=== PATIENT | male | born 1980 | race Caucasian/White ===

== ENCOUNTER 2017-05-30 18:22 | Emergency (ER) | payer OTHER ==
--- NOTE | 2017-05-30 18:33 | PDOC ---
Rapid Medical Evaluation Chief Complaint: Injury Medical Evaluation: 05/30/17 18:32 I have performed a brief in-person evaluation of this patient. The patient presents with a chief complaint of:Slipped on plastic outdoors and injured R knee and R lower back Pertinent physical exam findings:Abrasion to R knee I have ordered the following:xray R knee The patient will proceed to the ED for further evaluation.
[2017-05-30 18:35] VITALS: BP 134/83; PULSE 90; TEMP 97; BMI 29.7
[2017-05-30] MEDS ORDERED: KETOROLAC TROMETHAMINE 60 MG/2 ML VIAL IM ONE (19:28)
[2017-05-30] MEDS ORDERED: KETOROLAC TROMETHAMINE 60 MG/2 ML VIAL ONE (19:30)
--- NOTE | 2017-05-30 19:31 | PDOC ---
History of Present Illness - General Chief Complaint: Injury Stated Complaint: FALL/INJURY Time Seen by Provider: 05/30/17 19:02 - History of Present Illness Initial Comments: 05/30/17 19:26 CHIEF COMPLAINT: R sided low back pain HISTORY OF PRESENT ILLNESS: 36 yo M with no significant PMH presents to [facility] with R lower back today after slipping on "a piece of plastic" and landing on his R knee. He states he felt a muscle strain in his back when he fell onto his knee and that he has "a little pain" in his knee but "more on the R side of my back." PAST MEDICAL HISTORY: Denies past medical history FAMILY HISTORY: Denies SOCIAL HISTORY: Denies tobacco, alcohol, illicit drug use. SURGICAL HISTORY: Denies ALLERGIES: No known drug allergies REVIEW OF SYSTEMS as per HPI PHYSICAL EXAM General Appearance: Well-appearing, appropriately dressed. No apparent distress. HEENT: EOMI, PERRLA Respiratory/Chest: Lungs CTAB. Cardiovascular: RRR. S1, S2. Musculoskeletal/Extremities: Palpable muscle spasm to R lower back. No swelling or erythema to R knee. Normal inspection. FROM of all extremities, normal capillary refill. Pelvis Stable. No CVA tenderness. No tenderness to extremities, pedal edema, swelling, erythema or deformity. Integumentary: Appropriate color, dry, warm. No cyanosis, erythema, jaundice or rash Neurologic: winder fixer II-XII intact. Fully oriented, alert. Appropriate mood/affect. Motor strength 5/5. No appreciable EOM palsy, facial droop or sensory deficit. Past History - Past Medical History Allergies/Adverse Reactions: Allergies Allergy/AdvReac Type Severity Reaction Status Date / Time No Known Allergies Allergy Verified 05/30/17 18:34 Home Medications: Ambulatory Orders Cyclobenzaprine HCl 7.5 mg PO HS PRN #5 tablet 05/30/17 Naproxen 375 mg PO BID #14 tablet 05/30/17 COPD: No DVT: No - Suicide/Smoking/Psychosocial Hx Smoking History: Never smoked *Physical Exam - Vital Signs Last Vital Signs Temp Pulse Resp BP Pulse Ox 97 F L 90 18 134/83 99 05/30/17 18:31 05/30/17 18:31 05/30/17 18:31 05/30/17 18:31 05/30/17 18:31 Medical Decision Making - Medical Decision Making 05/30/17 19:28 36 yo M with no significant PMH presents to [facility] with R lower back today after slipping on "a piece of plastic" and landing on his R knee. -Toradol IM Advised patient to take medication as prescribed and follow up with ortho if symptoms persist. Advised patient of signs and symptoms for return to ED. Patient verbalized understanding and agrees to plan. *DC/Admit/Observation/Transfer Diagnosis at time of Disposition: Low back strain - Discharge Dispostion Disposition: HOME Condition at time of disposition: Stable Admit: No - Prescriptions Prescriptions: Cyclobenzaprine HCl 7.5 mg PO HS PRN #5 tablet PRN Reason: Muscle Spasms Naproxen 375 mg PO BID #14 tablet - Referrals Referrals: Jose Peña MD [Staff Physician] - - Patient Instructions Printed Discharge Instructions: DI for Muscle Strain Additional Instructions: Please take medication as prescribed - do NOT drink alcohol, drive, or operate machinery while taking cyclobenzaprine. If your symptoms do not improve in 5-7 days, please follow up with an orthopedics for further evaluation and a possible MRI or physical therapy. If you experience any loss of sensation to your extremities, any loss of bowel or bladder function, any swelling or increased pain to your leg, please return to the ER. - Post Discharge Activity
== END 2017-05-30 19:35 | disposition home or self-care (01) ==
LOC: JERFT 18:22
PROC: 3E0233Z Introduction of Anti-inflammatory into Muscle, Percutaneous Approach (ICD-10-PCS; principal; 2017-05-30)
DX: S39.012A Strain of muscle, fascia and tendon of lower back, initial encounter (principal); W01.0XXA Fall on same level from slipping, tripping and stumbling without subsequent striking against object, initial encounter; Y93.89 Activity, other specified; Y92.89 Other specified places as the place of occurrence of the external cause; Y99.8 Other external cause status
CPT/HCPCS: 73562-TC-RT-FY; 99281-25

== ENCOUNTER 2018-07-01 16:30 | Emergency (ER) | payer OTHER ==
[2018-07-01 16:46] VITALS: BP 119/70; PULSE 109; TEMP 98.5; BMI 29.0
[2018-07-01] MEDS ORDERED: PENICILLIN G BENZATHINE 1,200,000 UNIT/2 ML PFS IM ONE (17:13)
[2018-07-01] MEDS ORDERED: DEXAMETHASONE LIQUID 0.5 MG/5 ML 240 ML BULK BOTTLE PO ONE (17:13)
--- NOTE | 2018-07-01 17:15 | PDOC ---
History of Present Illness - General Chief Complaint: Sore Throat Stated Complaint: FEVER SORE THROAT Time Seen by Provider: 07/01/18 17:10 - History of Present Illness Initial Comments: 07/01/18 17:13 37-year-old male without comorbidities presents for evaluation of sore throat and fever times one day. Past History - Past Medical History Allergies/Adverse Reactions: Allergies Allergy/AdvReac Type Severity Reaction Status Date / Time No Known Allergies Allergy Verified 07/01/18 16:46 Home Medications: Ambulatory Orders NK [No Known Home Medication] 11/18/17 COPD: No DVT: No - Immunization History Immunization Up to Date: Yes - Suicide/Smoking/Psychosocial Hx Smoking History: Never smoked Have you smoked in the past 12 months: No Hx Alcohol Use: Yes (OCCASIONALLY) Drug/Substance Use Hx: No Substance Use Type: None Review of Systems - Review of Systems Constitutional: Yes: Fever HEENTM: Yes: Throat Pain, Difficulty Swallowing *Physical Exam - Vital Signs Last Vital Signs Temp Pulse Resp BP Pulse Ox 98.5 F 109 H 16 119/70 97 07/01/18 16:44 07/01/18 16:44 07/01/18 16:44 07/01/18 16:44 07/01/18 16:44 - Physical Exam Comments: 07/01/18 17:13 HEAD: NC/AT EYES: Conjuntiva clear Ears: Canals and TM's normal NOSE: No d/c THROAT: Moist mucous membrances, oral pharanx erythemic with exudate, uvula midline NECK: Supple without adenopathy CARDIAC: S1 S2 LUNGS: CTA Full and Equal breath sounds ABDOMEN: Soft NT ND MS: Full ROM in all joints without edema NEUROLOGIC: No gross sensory or motor deficits, NVID SKIN: Normal color and temperature no lesions or rashes Medical Decision Making - Medical Decision Making 07/01/18 17:13 Treat for strep based on symptoms. Patient is requesting a shot of Bicillin. I will give him Bicillin and Decadron and have him follow-up with his PCP. *DC/Admit/Observation/Transfer Diagnosis at time of Disposition: Strep pharyngitis - Discharge Dispostion Disposition: HOME Condition at time of disposition: Stable Decision to Admit order: No - Referrals Referrals: Leeroy Galvez [Non Staff, Medical] - - Patient Instructions Printed Discharge Instructions: DI for Strep Throat, Strep Throat Additional Instructions: Return to the emergency room for worsening symptoms. Please follow-up with your primary care provider in one to 2 days for further evaluation and treatment options. He will given a shot of penicillin in the emergency room. You do not require home antibiotic therapy at this point. He will also given at steroid to drink which is long-acting and will help with your pain and fever. He may take Tylenol if you need to for pain. Warm salt water gargles will also help 5-6 times a day. - Post Discharge Activity
[2018-07-01] MEDS ORDERED: PENICILLIN G BENZATHINE 2,400,000 UNIT/4 ML PFS ONE (17:16)
[2018-07-01] MEDS ORDERED: DEXAMETHASONE SOD PHOSPHATE 10 MG/1 ML VIAL ONE (17:16)
== END 2018-07-01 17:24 | disposition home or self-care (01) ==
LOC: JERFT 16:30
DX: J02.0 Streptococcal pharyngitis (principal); B95.5 Unspecified streptococcus as the cause of diseases classified elsewhere
CPT/HCPCS: 96372; 99281-25

== ENCOUNTER 2018-12-25 11:31 | Emergency (ER) | payer OTHER ==
[2018-12-25 11:37] VITALS: BP 135/86; PULSE 80; TEMP 97.6; BMI 29.1
[2018-12-25] MEDS ORDERED: KETOROLAC TROMETHAMINE 60 MG/2 ML VIAL IM ONE (13:08)
--- NOTE | 2018-12-25 13:14 | PDOC ---
History of Present Illness - General Chief Complaint: Headache Stated Complaint: HEADACHE X3 DAYS Time Seen by Provider: 12/25/18 12:11 History Source: Patient - History of Present Illness Timing/Duration: reports: other Severity: Yes: moderate Past History - Past Medical History Allergies/Adverse Reactions: Allergies Allergy/AdvReac Type Severity Reaction Status Date / Time No Known Allergies Allergy Verified 12/25/18 11:37 Home Medications: Ambulatory Orders NK [No Known Home Medication] 11/18/17 COPD: No DVT: No - Immunization History Immunization Up to Date: Yes - Suicide/Smoking/Psychosocial Hx Smoking History: Never smoked Have you smoked in the past 12 months: No Information on smoking cessation initiated: No Hx Alcohol Use: No Drug/Substance Use Hx: No Substance Use Type: None Review of Systems - Review of Systems Constitutional: No: Chills, Fever, Unintentional Wgt. Loss HEENTM: No: Blurred Vision ABD/GI: No: Nausea, Vomiting Neurological: Yes: Headache. No: Numbness, Paresthesia, Tingling, Weakness, Dizziness *Physical Exam - Vital Signs Last Vital Signs Temp Pulse Resp BP Pulse Ox 97.6 F 80 18 135/86 97 12/25/18 11:34 12/25/18 11:34 12/25/18 11:34 12/25/18 11:34 12/25/18 11:34 - Physical Exam General Appearance: Yes: Appropriately Dressed. No: Apparent Distress HEENT: positive: Normal Voice Neck: positive: Supple Respiratory/Chest: negative: Respiratory Distress Integumentary: positive: Dry, Warm Neurologic: positive: insurance loss assessor II-XII NML intact, Fully Oriented, Alert, Normal Mood/ Affect, Motor Strength 5/5 Medical Decision Making - Medical Decision Making 12/25/18 13:14 38 yo M, no known pmhx, here w/ TILLMAN. Pt reports diffuse TILLMAN x 3 days, unable to describe, /10, improved w/ OTC meds. No dizziness, visual changes, n/v or focal weakness. Has had HAs in past but not his constant per pt. No recent head injury. see exam TILLMAN Improves w/ OTC meds Stable w/ no focal deficits No red flags at this time -Dose of toradol here -Dc to cont OTC meds -Neuro f/u as needed *DC/Admit/Observation/Transfer Diagnosis at time of Disposition: Headache Qualifiers: Headache type: unspecified Headache chronicity pattern: acute headache Intractability: not intractable Qualified Code(s): R51 - Headache - Discharge Dispostion Disposition: HOME Condition at time of disposition: Good - Referrals Referrals: Josefina Stanley [Primary Care Provider] - - Patient Instructions Printed Discharge Instructions: DI for Headache Additional Instructions: Continue over the counter medications as needed Please follow up with Dr Tapia if headache persists - Post Discharge Activity
[2018-12-25] MEDS ORDERED: KETOROLAC TROMETHAMINE 60 MG/2 ML VIAL ONE (13:17)
== END 2018-12-25 13:23 | disposition home or self-care (01) ==
LOC: JERFT 11:31
PROC: 3E0233Z Introduction of Anti-inflammatory into Muscle, Percutaneous Approach (ICD-10-PCS; principal; 2018-12-25)
DX: R51 Headache (principal)
CPT/HCPCS: 99281-25

== ENCOUNTER 2022-11-18 17:46 | Emergency (ER) | payer OTHER ==
[2022-11-18 17:51] VITALS: BP 158/94; PULSE 90; RESP 18; TEMP 98.4; BMI 30.2
[2022-11-18] MEDS ORDERED: IBUPROFEN 600 MG TABLET (FP) PO ONE ×2 (18:52→19:07)
[2022-11-18] MEDS ORDERED: ACETAMINOPHEN 500 MG TABLET (FP) PO ONE (18:52)
[2022-11-18] MEDS ORDERED: ACETAMINOPHEN 500 MG TABLET (FP) ONE (19:07)
[2022-11-18 19:54] LABS: BASO % 0.2 % (0-2.0); HEMATOCRIT 44.4 % (35.4-49); HEMOGLOBIN 15.4 GM/dL (11.7-16.9); LYMPH % 8.8 % (8-40); MCH 29.5 pg (25.7-33.7); MCHC 34.8 g/dl (32.0-35.9); MEAN CELL VOLUME 84.7 fl (80-96); MEAN PLT VOLUME 8.7 fl (7.5-11.1); MONO % 5.8 % (3.8-10.2); NEUT % 83.2 % (42.8-82.8); PLATELET COUNT 213 10^3/uL (134-434); RBC 5.24 M/mm3 (4.00-5.60); RDW 13.6 % (11.9-15.9); WHITE BLOOD COUNT 14.5 K/mm3 (4.0-10.0)
[2022-11-18 20:13] LABS: POTASSIUM 4.1 mmol/L (3.5-5.1)
[2022-11-18 20:14] LABS: CALCIUM 9.1 mg/dL (8.5-10.1)
[2022-11-18 20:15] LABS: BLOOD UREA NITROGEN 12.7 mg/dL (7-18)
== END 2022-11-18 21:49 | disposition home or self-care (01) ==
LOC: JERFT 17:46
DX: J03.90 Acute tonsillitis, unspecified (principal); M54.2 Cervicalgia; R13.10 Dysphagia, unspecified; Z20.822 Contact with and (suspected) exposure to COVID-19
CPT/HCPCS: 36415; 70491-TC; 80048; 85025; 86308; 87651; 99285-25; Q9967

== ENCOUNTER 2022-11-19 09:17 | Emergency (ER) | payer OTHER ==
[2022-11-19 09:19] VITALS: BP 144/92; PULSE 89; RESP 18; TEMP 97.7; BMI 30.2
[2022-11-19] MEDS ORDERED: DEXAMETHASONE SOD PHOSPHATE 10 MG/1 ML VIAL IM ONE (09:49)
[2022-11-19] MEDS ORDERED: AZITHROMYCIN 250 MG TABLET PO ONE (09:51)
[2022-11-19] MEDS ORDERED: DEXAMETHASONE SOD PHOSPHATE 10 MG/1 ML VIAL ONE (09:59)
[2022-11-19] MEDS ORDERED: AZITHROMYCIN 500 MG TABLET ONE (09:59)
== END 2022-11-19 10:49 | disposition home or self-care (01) ==
LOC: JERFT 09:17
PROC: 3E023GC Introduction of Other Therapeutic Substance into Muscle, Percutaneous Approach (ICD-10-PCS; principal; 2022-11-19)
DX: R07.0 Pain in throat (principal); R13.10 Dysphagia, unspecified; R50.9 Fever, unspecified; R61 Generalized hyperhidrosis; J03.90 Acute tonsillitis, unspecified; B96.89 Other specified bacterial agents as the cause of diseases classified elsewhere
CPT/HCPCS: 99284-25; J1100

== ENCOUNTER 2023-01-11 22:42 | Emergency (ER) | payer OTHER ==
[2023-01-11 22:57] VITALS: RESP 18; TEMP 98; BMI 30.4
[2023-01-11] MEDS ORDERED: ACETAMINOPHEN 1000 MG/100 ML BAG IVPB ONE (23:59)
[2023-01-11] MEDS ORDERED: METOCLOPRAMIDE HCL INJECTION 10 MG/2 ML VIAL IVPB ONE (23:59)
[2023-01-11] MEDS ORDERED: SODIUM CHLORIDE 0.9% 500 ML INFUS.BAG IV ONE (23:59)
[2023-01-12] MEDS ORDERED: LIDOCAINE 5% TOPICAL PATCH TP ONE
[2023-01-12] MEDS ORDERED: ACETAMINOPHEN INJECTION 100 ML IVPB ONE (00:23)
[2023-01-12] MEDS ORDERED: METOCLOPRAMIDE HCL INJECTION 10 MG/2 ML VIAL ONE (00:23)
[2023-01-12] MEDS ORDERED: LIDOCAINE 4% PATCH TP ONE ×2 (00:25→00:30)
[2023-01-12 00:30] LABS: BASO % 0.6 % (0-2.0); EOS % 7.9 % (0-4.5); HEMATOCRIT 45.9 % (35.4-49); HEMOGLOBIN 16.1 GM/dL (11.7-16.9); LYMPH % 35.3 % (8-40); MCH 29.6 pg (25.7-33.7); MEAN CELL VOLUME 84.5 fl (80-96); MEAN PLT VOLUME 8.1 fl (7.5-11.1); MONO % 6.4 % (3.8-10.2); NEUT % 49.8 % (42.8-82.8); PLATELET COUNT 242 10^3/uL (134-434); RBC 5.43 M/mm3 (4.00-5.60); RDW 13.6 % (11.9-15.9); WHITE BLOOD COUNT 9.7 K/mm3 (4.0-10.0)
[2023-01-12 00:48] LABS: POTASSIUM 4.4 mmol/L (3.5-5.1)
[2023-01-12 00:50] LABS: CALCIUM 9.3 mg/dL (8.5-10.1)
[2023-01-12 00:51] LABS: ALBUMIN 3.8 g/dl (3.4-5.0); BLOOD UREA NITROGEN 13.9 mg/dL (7-18)
[2023-01-12 00:54] LABS: CREATININE 0.9 mg/dL (0.55-1.3)
[2023-01-12 00:55] LABS: BILIRUBIN,TOTAL 0.3 mg/dL (0.2-1); TOT PROT 7.9 g/dl (6.4-8.2)
[2023-01-12] MEDS ORDERED: AMOX TR/POT CLAV 875MG/125MG TABLETS (FP) PO ONE (03:25)
[2023-01-12] MEDS ORDERED: AMOX TR/POT CLAV 875MG/125MG TABLETS (FP) ONE (03:31)
[2023-01-12 03:45] VITALS: BP 144/82; PULSE 88
[2023-01-12] MEDS ORDERED: LIDOCAINE PATCH REMOVAL MC SCH ×2 (22:00)
== END 2023-01-12 03:45 | disposition home or self-care (01) ==
LOC: JER 22:42
PROC: 3E033NZ Introduction of Analgesics, Hypnotics, Sedatives into Peripheral Vein, Percutaneous Approach (ICD-10-PCS; principal; 2023-01-12)
PROC: 3E033GC Introduction of Other Therapeutic Substance into Peripheral Vein, Percutaneous Approach (ICD-10-PCS; 2023-01-12)
PROC: 3E0337Z Introduction of Electrolytic and Water Balance Substance into Peripheral Vein, Percutaneous Approach (ICD-10-PCS; 2023-01-12)
DX: R51.9 Headache, unspecified (principal); J01.90 Acute sinusitis, unspecified; M54.2 Cervicalgia; Z20.822 Contact with and (suspected) exposure to COVID-19
CPT/HCPCS: 0241U-QW; 36415; 70450-TC; 80053; 85025; 99284-25

== ENCOUNTER 2023-01-18 22:36 | Emergency (ER) | payer OTHER ==
[2023-01-18 22:42] VITALS: BP 158/108; PULSE 77; RESP 18; TEMP 97.7; BMI 30.4
== END 2023-01-19 00:04 | disposition home or self-care (01) ==
LOC: JER 22:36
DX: R51.9 Headache, unspecified (principal)
CPT/HCPCS: 99283-25

== ENCOUNTER 2024-03-14 09:20 | Emergency (ER) | payer OTHER ==
[2024-03-14 09:53] VITALS: BP 153/99; PULSE 75; RESP 16; TEMP 97.9; BMI 31.7
[2024-03-14] MEDS ORDERED: LIDOCAINE 4% PATCH TP ONE (11:41)
[2024-03-14] MEDS ORDERED: KETOROLAC TROMETHAMINE 30 MG/1 ML VIAL ONE (11:41)
[2024-03-14] MEDS: LIDOCAINE 4% PATCH TP ONE (11:52)
[2024-03-14] MEDS: KETOROLAC TROMETHAMINE 30 MG/1 ML VIAL IM ONE (11:53)
[2024-03-14] MEDS ORDERED: LIDOCAINE PATCH REMOVAL MC ONE (22:00)
== END 2024-03-14 12:02 | disposition home or self-care (01) ==
LOC: JERFT 09:20 → JER 09:20 → JERFT 12:02
PROC: 3E0133Z Introduction of Anti-inflammatory into Subcutaneous Tissue, Percutaneous Approach (ICD-10-PCS; principal; 2024-03-14)
DX: M54.16 Radiculopathy, lumbar region (principal); M54.41 Lumbago with sciatica, right side
CPT/HCPCS: 99284-25

== ENCOUNTER 2024-05-02 04:10 | Day surgery (SDC) | payer OTHER ==
[2024-05-01 12:44] VITALS: BMI 31.7
[2024-05-02] MEDS ORDERED: LIDOCAINE HCL/PF 1% SDV 5ML VIAL ONE (07:13)
[2024-05-02] MEDS ORDERED: DEXAMETHASONE SOD PHOSPHATE 10 MG/1 ML VIAL ONE (07:13)
[2024-05-02] MEDS: LIDOCAINE HCL 1% PRESERVATIVE FREE - 30ML VIAL IJ ONE ×3 (12:42)
[2024-05-02] MEDS: IOHEXOL 180 MG/1 ML ML IJ ONE ×3 (12:46)
[2024-05-02] MEDS: DEXAMETHASONE SOD PHOSPHATE 10 MG/1 ML VIAL IM ONE ×2 (12:50)
[2024-05-02 14:23] VITALS: BP 152/89; PULSE 92; RESP 18; TEMP 97.9
[2024-05-02] MEDS ORDERED: ACETAMINOPHEN 500 MG TABLET (FP) PO PRN (15:31)
== END 2024-05-02 13:10 | disposition home or self-care (01) ==
LOC: JASU-SURG 04:10
PROVIDERS: ATTEND Pain Medicine Pain Medicine
PROC: 3E0R3BZ Introduction of Anesthetic Agent into Spinal Canal, Percutaneous Approach (ICD-10-PCS; 2024-05-02)
PROC: 3E0R33Z Introduction of Anti-inflammatory into Spinal Canal, Percutaneous Approach (ICD-10-PCS; principal; 2024-05-02 12:30)
DX: M54.16 Radiculopathy, lumbar region (principal)
CPT/HCPCS: 76000-TC-FY; J1100

== ENCOUNTER 2024-05-29 07:01 | Day surgery (SDC) | payer OTHER ==
[2024-05-28 14:22] VITALS: BMI 31.7
[2024-05-29 15:10] VITALS: RESP 18; TEMP 98
[2024-05-29 15:35] VITALS: BP 147/98; PULSE 84
[2024-05-29] MEDS ORDERED: ACETAMINOPHEN 500 MG TABLET (FP) PO PRN (17:15)
== END 2024-05-29 15:25 | disposition home or self-care (01) ==
LOC: JASU-SURG 07:01
PROVIDERS: ATTEND Pain Medicine Pain Medicine
PROC: 3E0R3BZ Introduction of Anesthetic Agent into Spinal Canal, Percutaneous Approach (ICD-10-PCS; 2024-05-29)
PROC: 3E0R33Z Introduction of Anti-inflammatory into Spinal Canal, Percutaneous Approach (ICD-10-PCS; principal; 2024-05-29 14:47)
DX: M54.16 Radiculopathy, lumbar region (principal)
CPT/HCPCS: 76000-TC-FY